=== PATIENT | male | born 1935 | race Caucasian/White ===

== ENCOUNTER 2018-01-23 08:23 | Emergency (ER) | payer OTHER ==
[~2018-01-23] VITALS: Ht 175.3 cm; Wt 87.6 kg
[~2018-01-23 08:23] MED LIST: FLEXERIL10 MG PO; LORTAB 5-325 M1 EACH PO
[2018-01-23 09:19] LABS: HEMATOCRIT 41.9 % (38.0-50.0); HEMOGLOBIN 14.4 G/DL (12.5-16.6); MCH 29.9 PG (29.0-34.0); MCHC 34.4 G/DL (30.0-36.0); MCV 86.9 FL (86-99); PLATELET COUNT 222 K/uL (156-360); RBC DIS.WIDTH-CV 12.8 % (11.8-14.6); RBC DIS.WIDTH-SD 40.6 % (39-53); RED BLOOD COUNT 4.82 M/uL (4.00-5.50); WHITE BLOOD COUNT 7.1 K/uL (4.1-10.2)
[2018-01-23 09:31] LABS: CHLORIDE 103 mEq/L (99-109); POTASSIUM 4.6 mEq/L (3.7-5.4); SODIUM 136 mEq/L (136-147)
[2018-01-23 09:33] LABS: GLUCOSE 256 mg/dL (70-99)
[2018-01-23 09:37] LABS: CREATININE 0.9 mg/dL (0.6-1.3); GFR ESTIMATE (CALCULATED) > 59 mL/min/ (58.99-99999); UREA NITROGEN (BUN) 13 mg/dL (9-23)
[2018-01-23 09:40] LABS: TROP-I INTERPRETATION NEGATIVE; TROPONIN-I < 0.01 ng/mL (0.0-0.30)
[2018-01-23 12:15] LABS: APPEARANCE CLEAR ((CLEAR)); BILIRUBIN NEGATIVE; BLOOD NEGATIVE; COLOR COLORLESS ((YELLOW)); GLUCOSE (STRIP) 50; KETONES NEGATIVE; LEUKOCYTES NEGATIVE; NITRITE NEGATIVE; PROTEIN (STRIP) NEGATIVE; SPECIFIC GRAVITY 1.005 (1.000-1.030); UCUL ADDED? NO; UROBILINOGEN 0.2 MG/DL (0.2-1.0)
[2018-01-23 12:17] LABS: TROP-I INTERPRETATION NEGATIVE; TROPONIN-I < 0.01 ng/mL (0.0-0.30)
[2018-01-23] MEDS ORDERED: LISINOPRIL30 MG PO (12:51)
[2018-01-23] MEDS ORDERED: GLIPIZIDE XL10 MG PO (12:52)
[2018-01-23 12:56] VITALS: BP 172/92
== END 2018-01-23 12:56 | disposition home or self-care (01) ==
LOC: EME 08:23
PROVIDERS: Emergency Medicine
DX: R07.89 Other chest pain (principal); E11.9 Type 2 diabetes mellitus without complications; I10 Essential (primary) hypertension; E78.5 Hyperlipidemia, unspecified
CPT/HCPCS: 71046; 80048; 81003; 84484; 85027; 93005; 99281; 99285

== ENCOUNTER 2018-01-26 07:50 | Observation (INO) | payer OTHER ==
[~2018-01-26] VITALS: Ht 175.3 cm; Wt 86.6 kg
[~2018-01-26 07:50] MED LIST changes: +GLIPIZIDE XL10 MG PO; +LISINOPRIL30 MG PO
[2018-01-26 08:37] LABS: INTER. NORMALIZED RATIO 1.1
[2018-01-26 08:40] LABS: PTT 24.7 SEC (25-37)
[2018-01-26 08:45] LABS: BASOPHIL (%) 0.3 % (0-1); EOSINOPHIL (%) 0.3 % (0-5); HEMATOCRIT 44.7 % (38.0-50.0); HEMOGLOBIN 15.8 G/DL (12.5-16.6); IMMATURE GRANULOCYTE (%) 0.4 % (0.0-0.7); LYMPHOCYTE (%) 10.1 % (15-42); MCH 29.8 PG (29.0-34.0); MCHC 35.3 G/DL (30.0-36.0); MCV 84.2 FL (86-99); MONOCYTE (%) 5.3 % (3-12); MONOCYTE COUNT 0.5 K/uL (0-0.8); NEUTROPHIL (%) 83.6 % (45-76); NEUTROPHIL COUNT 8.2 K/uL (1.8-6.4); PLATELET COUNT 233 K/uL (156-360); RBC DIS.WIDTH-CV 12.3 % (11.8-14.6); RBC DIS.WIDTH-SD 37.4 % (39-53); RED BLOOD COUNT 5.31 M/uL (4.00-5.50); WHITE BLOOD COUNT 9.8 K/uL (4.1-10.2)
[2018-01-26 08:47] LABS: CHLORIDE 95 mEq/L (99-109); POTASSIUM 4.2 mEq/L (3.7-5.4)
[2018-01-26 08:49] LABS: GLUCOSE 309 mg/dL (70-99)
[2018-01-26 08:51] LABS: SODIUM 129 mEq/L (136-147)
[2018-01-26 08:53] LABS: GFR ESTIMATE (CALCULATED) > 59 mL/min/ (58.99-99999); UREA NITROGEN (BUN) 18 mg/dL (9-23)
[2018-01-26 08:56] LABS: TROP-I INTERPRETATION NEGATIVE; TROPONIN-I < 0.01 ng/mL (0.0-0.30)
[2018-01-26] MEDS ORDERED: LIPITOR40 MG PO (10:21)
[2018-01-26] MEDS ORDERED: OMEPRAZOLE40 M1 PO (10:22)
[2018-01-26] MEDS ORDERED: LO-DOSE ASPIRIN81 M1 PO (10:22)
[2018-01-26] MEDS ORDERED: CINNAMON500 MG PO (10:23)
[2018-01-26] MEDS ORDERED: ONE DAILY MULT1 EACH PO (10:23)
[2018-01-26] MEDS ORDERED: FLECTOR 1.3%1 PATC1 TD (10:24)
[2018-01-26 12:01] VITALS: BP 184/108
[2018-01-26 12:25] LABS: ALBUMIN 4.2 g/dL (3.2-4.8)
[2018-01-26 12:28] LABS: TOTAL PROTEIN 7.4 g/dL (6.4-8.3)
[2018-01-26 12:30] LABS: TOTAL BILIRUBIN 1.2 mg/dL (0.0-1.0)
[2018-01-26 12:31] LABS: ALKALINE PHOSPHATASE 128 IU/L (3-129)
[2018-01-26 12:33] LABS: AST (GOT) 21 IU/L (2-34); DIRECT BILIRUBIN 0.4 mg/dL (0.0-0.3)
[2018-01-26 12:34] LABS: ALT (GPT) 25 IU/L (3-49)
[2018-01-26 12:55] VITALS: BP 113/65
[2018-01-26 13:11] LABS: HDL CHOLESTEROL 39 MG/DL (Desirable>=40); LDL CHOLESTEROL 90 mg/dL (Desirable<100); NON-HDL CHOLESTEROL 103 mg/dL (Desirable<160); TOTAL CHOLESTEROL 142 mg/dL (Desirable<200); TRIGLYCERIDES 67 MG/DL (Normal: <150)
[2018-01-26 14:31] VITALS: BP 168/89
[2018-01-26 16:25] LABS: TROP-I INTERPRETATION NEGATIVE; TROPONIN-I < 0.01 ng/mL (0.0-0.30)
[2018-01-26 19:00] VITALS: BP 170/90
[2018-01-26 19:57] LABS: CHLORIDE 96 MEQ/L (99-109); POTASSIUM 3.8 MEQ/L (3.7-5.4); SODIUM 129 MEQ/L (136-147)
[2018-01-26 20:02] LABS: CREATININE 0.7 MG/DL (0.6-1.3); GFR ESTIMATE (CALCULATED) > 59 mL/min/ (58.99-99999); GLUCOSE 258 mg/dL (70-99); LIPASE 21 U/L (1.0-51.0); UREA NITROGEN (BUN) 16 mg/dL (9-23)
[2018-01-26 22:39] LABS: TROP-I INTERPRETATION NEGATIVE; TROPONIN-I < 0.01 ng/mL (0.0-0.30)
[2018-01-26 23:25] VITALS: BP 194/97
[2018-01-27 04:00] VITALS: BP 173/88
[2018-01-27 07:00] LABS: CHLORIDE 98 MEQ/L (99-109); SODIUM 131 MEQ/L (136-147)
[2018-01-27 07:05] LABS: CREATININE 0.7 MG/DL (0.6-1.3); GFR ESTIMATE (CALCULATED) > 59 mL/min/ (58.99-99999); GLUCOSE 262 mg/dL (70-99); UREA NITROGEN (BUN) 17 mg/dL (9-23)
[2018-01-27 07:22] VITALS: BP 174/88
[2018-01-27] MEDS ORDERED: AMLODIPINE BESYL5 MG PO (10:25)
[2018-01-27] MEDS ORDERED: NITROSTAT0.4 MG SL (10:25)
[2018-01-27 12:26] LABS: HEMOGLOBIN A1c (GLYCOHEMOGLOB) 7.8 % (Below 5.7)
== END 2018-01-27 10:56 | disposition home or self-care (01) ==
LOC: EME 07:50 → EDOF 10:57 → ENRESERV 11:07 → 4SOUTH 11:58
PROVIDERS: Emergency Medicine; Nurse Practitioner Adult Health
DX: R07.9 Chest pain, unspecified (principal); I10 Essential (primary) hypertension; E87.1 Hypo-osmolality and hyponatremia; E11.65 Type 2 diabetes mellitus with hyperglycemia; E78.5 Hyperlipidemia, unspecified; Z79.82 Long term (current) use of aspirin; Z79.84 Long term (current) use of oral hypoglycemic drugs
CPT/HCPCS: 71045; 80048; 80048 91; 80061; 80076; 83036; 83690; 83880; 84484; 85025; 85379; 85610; 85730; 93005; 99281; 99285; G0378; J0360; J1650; J7030

== ENCOUNTER 2018-02-02 17:35 | Inpatient (IN) | payer OTHER ==
[~2018-02-02] VITALS: Ht 175.3 cm; Wt 79.1 kg
[~2018-02-02 17:35] MED LIST changes: +AMLODIPINE BESYL5 MG PO; +CINNAMON500 MG PO; +FLECTOR 1.3%1 PATC1 TD; +LIPITOR40 MG PO; +LO-DOSE ASPIRIN81 M1 PO; +NITROSTAT0.4 MG SL; +OMEPRAZOLE40 M1 PO; +ONE DAILY MULT1 EACH PO
[2018-02-02 19:41] VITALS: BP 142/76
[2018-02-02 23:11] LABS: BASOPHIL (%) 0.3 % (0-1); EOSINOPHIL (%) 1.2 % (0-5); EOSINOPHIL COUNT 0.2 K/uL (0-0.3); HEMOGLOBIN 15.5 G/DL (12.5-16.6); IMMATURE GRANULOCYTE (%) 0.4 % (0.0-0.7); LYMPHOCYTE (%) 9.5 % (15-42); LYMPHOCYTE COUNT 1.5 K/uL (1.0-2.8); MCV 83.2 FL (86-99); MONOCYTE (%) 8.3 % (3-12); MONOCYTE COUNT 1.3 K/uL (0-0.8); NEUTROPHIL (%) 80.3 % (45-76); NEUTROPHIL COUNT 12.3 K/uL (1.8-6.4); PLATELET COUNT 258 K/uL (156-360); RBC DIS.WIDTH-CV 12.5 % (11.8-14.6); RBC DIS.WIDTH-SD 38.2 % (39-53); RED BLOOD COUNT 5.17 M/uL (4.00-5.50); WHITE BLOOD COUNT 15.3 K/uL (4.1-10.2)
[2018-02-02 23:20] LABS: ALBUMIN 3.4 g/dL (3.2-4.8); CHLORIDE 95 mEq/L (99-109); POTASSIUM 4.4 mEq/L (3.7-5.4); SODIUM 126 mEq/L (136-147)
[2018-02-02 23:21] LABS: MAGNESIUM 1.7 mg/dL (1.3-2.7)
[2018-02-02 23:22] LABS: GLUCOSE 202 mg/dL (70-99)
[2018-02-02 23:24] LABS: TOTAL BILIRUBIN 1.4 mg/dL (0.0-1.0)
[2018-02-02 23:26] LABS: ALKALINE PHOSPHATASE 113 IU/L (3-129); CREATININE 0.8 mg/dL (0.6-1.3); GFR ESTIMATE (CALCULATED) > 59 mL/min/ (58.99-99999)
[2018-02-02 23:27] LABS: UREA NITROGEN (BUN) 23 mg/dL (9-23)
[2018-02-02 23:28] LABS: AST (GOT) 17 IU/L (2-34)
[2018-02-02 23:29] LABS: ALT (GPT) 17 IU/L (3-49)
[2018-02-02 23:49] VITALS: BP 168/81
[2018-02-03] VITALS (9 sets, daily range): BP systolic 48–179; BP diastolic 39–100
[2018-02-03 10:00] LABS: HEMOGLOBIN A1c (GLYCOHEMOGLOB) 8.1 % (Below 5.7)
[2018-02-03 11:50] LABS: BASOPHIL (%) 0.3 % (0-1); EOSINOPHIL (%) 1.1 % (0-5); EOSINOPHIL COUNT 0.1 K/uL (0-0.3); HEMATOCRIT 43.2 % (38.0-50.0); HEMOGLOBIN 15.5 G/DL (12.5-16.6); IMMATURE GRANULOCYTE (%) 0.4 % (0.0-0.7); LYMPHOCYTE (%) 10.6 % (15-42); LYMPHOCYTE COUNT 1.2 K/uL (1.0-2.8); MCH 29.9 PG (29.0-34.0); MCHC 35.9 G/DL (30.0-36.0); MCV 83.2 FL (86-99); NEUTROPHIL (%) 78.6 % (45-76); NEUTROPHIL COUNT 9.1 K/uL (1.8-6.4); PLATELET COUNT 251 K/uL (156-360); RBC DIS.WIDTH-CV 12.4 % (11.8-14.6); RBC DIS.WIDTH-SD 37.7 % (39-53); RED BLOOD COUNT 5.19 M/uL (4.00-5.50); WHITE BLOOD COUNT 11.6 K/uL (4.1-10.2)
[2018-02-03 12:09] LABS: CHLORIDE 93 MEQ/L (99-109); CREATININE 0.6 MG/DL (0.6-1.3); GFR ESTIMATE (CALCULATED) > 59 mL/min/ (58.99-99999); GLUCOSE 264 mg/dL (70-99); MAGNESIUM 1.7 mg/dl (1.3-2.7); POTASSIUM 4.7 MEQ/L (3.7-5.4); SODIUM 126 MEQ/L (136-147); UREA NITROGEN (BUN) 16 mg/dL (9-23)
[2018-02-03 13:18] LABS: BASE EXCESS -0.3 mEq/L (-3 to +3); BICARBONATE 25.9 mEq/L (22-26); CARBOXY HGB 1.5 % (0-5); COMMENTS - BLOOD GASES A+C+; DEVICE NC; METHEMOGLOBIN 0.5 % (0-1.5); O2 FLOW 2 L/MIN; PCO2 47 mm Hg (35-45); PO2 63 mm Hg (80-100); SITE RR; TOTAL RESP RATE 28 resp/min; pH 7.35 (7.35-7.45)
[2018-02-03 14:53] LABS: CHLORIDE 94 MEQ/L (99-109); CREATININE 0.7 MG/DL (0.6-1.3); GFR ESTIMATE (CALCULATED) > 59 mL/min/ (58.99-99999); GLUCOSE 274 mg/dL (70-99); POTASSIUM 4.5 MEQ/L (3.7-5.4); SODIUM 126 MEQ/L (136-147); UREA NITROGEN (BUN) 14 mg/dL (9-23)
[2018-02-03 17:55] LABS: APPEARANCE CLEAR/COLORLESS; CSF TUBE NUMBER TUBE #3; RED CELL COUNT 0 /MM^3 (0-1)
[2018-02-03 17:56] LABS: CSF EOSINOPHILS 0 % (0-25); MONONUCLEAR WBC'S 100 % (50-90); POLYNUCLEAR WBC'S 0 % (0-3); WHITE CELL COUNT 2 /MM^3 (0-5)
[2018-02-03 18:17] LABS: CSF LDH 22 IU/L; CSF PROTEIN 312 mg/dL (15-45); GLUCOSE, CSF 140 mg/dL (40-80)
[2018-02-03 23:08] LABS: COMMENTS - BLOOD GASES C+; DEVICE VENT; FI02 100 %; MECHANICAL RATE 20 resp/min; MODE AC; PEEP 8 CM/H20; SITE RR; TIDAL VOLUME 450 ML; TOTAL RESP RATE 20 resp/min
[2018-02-03 23:09] LABS: BASE EXCESS -5.8 mEq/L (-3 to +3); BICARBONATE 19.5 mEq/L (22-26); CARBOXY HGB 0.4 % (0-5); METHEMOGLOBIN 0.8 % (0-1.5); PCO2 37 mm Hg (35-45); PO2 278 mm Hg (80-100); pH 7.33 (7.35-7.45)
[2018-02-03 23:29] LABS: APPEARANCE CLEAR ((CLEAR)); BILIRUBIN NEGATIVE; BLOOD NEGATIVE; COLOR YELLOW ((YELLOW)); GLUCOSE (STRIP) >=500; KETONES 5; LEUKOCYTES NEGATIVE; NITRITE NEGATIVE; PROTEIN (STRIP) NEGATIVE; SPECIFIC GRAVITY 1.017 (1.000-1.030); UCUL ADDED? NO; UROBILINOGEN 0.2 MG/DL (0.2-1.0)
[2018-02-04] VITALS (25 sets, daily range): BP systolic 86–155; BP diastolic 52–87
[2018-02-04 00:43] LABS: HEMATOCRIT 42.9 % (38.0-50.0); HEMOGLOBIN 14.9 G/DL (12.5-16.6); MCH 30.3 PG (29.0-34.0); MCHC 34.7 G/DL (30.0-36.0); PLATELET COUNT 267 K/uL (156-360); RBC DIS.WIDTH-CV 12.7 % (11.8-14.6); RBC DIS.WIDTH-SD 40.3 % (39-53); RED BLOOD COUNT 4.92 M/uL (4.00-5.50)
[2018-02-04 00:45] LABS: MCV 87.2 FL (86-99)
[2018-02-04 00:46] LABS: BASOPHIL (%) 0.1 % (0-1); EOSINOPHIL (%) 0.1 % (0-5); IMMATURE GRANULOCYTE (%) 0.5 % (0.0-0.7); LYMPHOCYTE (%) 3.9 % (15-42); LYMPHOCYTE COUNT 0.8 K/uL (1.0-2.8); MONOCYTE (%) 8.3 % (3-12); MONOCYTE COUNT 1.7 K/uL (0-0.8); NEUTROPHIL (%) 87.1 % (45-76); NEUTROPHIL COUNT 17.4 K/uL (1.8-6.4)
[2018-02-04 00:47] LABS: INTER. NORMALIZED RATIO 1.1
[2018-02-04 00:49] LABS: PTT 24.2 SEC (25-37)
[2018-02-04 00:55] LABS: CHLORIDE 98 mEq/L (99-109); SODIUM 128 mEq/L (136-147)
[2018-02-04 00:56] LABS: MAGNESIUM 1.8 mg/dL (1.3-2.7); POTASSIUM 6.1 mEq/L (3.7-5.4)
[2018-02-04 00:57] LABS: GLUCOSE 230 mg/dL (70-99)
[2018-02-04 01:01] LABS: GFR ESTIMATE (CALCULATED) > 59 mL/min/ (58.99-99999)
[2018-02-04 01:02] LABS: UREA NITROGEN (BUN) 19 mg/dL (9-23)
[2018-02-04 01:03] LABS: CREATINE KINASE 61 IU/L (1-294)
[2018-02-04 01:34] LABS: TRIGLYCERIDES 105 MG/DL (Normal: <150)
[2018-02-04 04:34] LABS: BASOPHIL (%) 0.1 % (0-1); EOSINOPHIL (%) 0.1 % (0-5); HEMATOCRIT 36.4 % (38.0-50.0); IMMATURE GRANULOCYTE (%) 0.8 % (0.0-0.7); LYMPHOCYTE (%) 3.4 % (15-42); LYMPHOCYTE COUNT 0.5 K/uL (1.0-2.8); MCHC 35.2 G/DL (30.0-36.0); MCV 85.4 FL (86-99); MONOCYTE COUNT 0.9 K/uL (0-0.8); NEUTROPHIL (%) 89.6 % (45-76); NEUTROPHIL COUNT 12.8 K/uL (1.8-6.4); PLATELET COUNT 198 K/uL (156-360); RBC DIS.WIDTH-CV 12.8 % (11.8-14.6); RBC DIS.WIDTH-SD 39.5 % (39-53); RED BLOOD COUNT 4.26 M/uL (4.00-5.50); WHITE BLOOD COUNT 14.2 K/uL (4.1-10.2)
[2018-02-04 04:36] LABS: HEMOGLOBIN 12.8 G/DL (12.5-16.6)
[2018-02-04 04:52] LABS: CHLORIDE 104 mEq/L (99-109); SODIUM 129 mEq/L (136-147)
[2018-02-04 04:53] LABS: CHLORIDE 104 mEq/L (99-109); SODIUM 130 mEq/L (136-147)
[2018-02-04 04:54] LABS: GLUCOSE 259 mg/dL (70-99); POTASSIUM 4.5 mEq/L (3.7-5.4)
[2018-02-04 04:55] LABS: GLUCOSE 260 mg/dL (70-99)
[2018-02-04 04:58] LABS: CREATININE 0.8 mg/dL (0.6-1.3); GFR ESTIMATE (CALCULATED) > 59 mL/min/ (58.99-99999)
[2018-02-04 04:59] LABS: CREATININE 0.7 mg/dL (0.6-1.3); GFR ESTIMATE (CALCULATED) > 59 mL/min/ (58.99-99999); UREA NITROGEN (BUN) 20 mg/dL (9-23)
[2018-02-04 05:00] LABS: CREATINE KINASE 43 IU/L (1-294); UREA NITROGEN (BUN) 17 mg/dL (9-23)
[2018-02-04 05:55] LABS: COMMENTS - BLOOD GASES C+; DEVICE VENT; FI02 50 %; MECHANICAL RATE 20 resp/min; MODE AC; PEEP 8 CM/H20; SITE RR; TIDAL VOLUME 450 ML; TOTAL RESP RATE 20 resp/min
[2018-02-04 05:56] LABS: BASE EXCESS -4.7 mEq/L (-3 to +3); BICARBONATE 19.5 mEq/L (22-26); CARBOXY HGB 0.4 % (0-5); METHEMOGLOBIN 0.8 % (0-1.5); PCO2 33 mm Hg (35-45); PO2 124 mm Hg (80-100); pH 7.38 (7.35-7.45)
[2018-02-05] VITALS (26 sets, daily range): BP systolic 110–175; BP diastolic 62–95
[2018-02-05 08:36] LABS: BASOPHIL (%) 0.3 % (0-1); EOSINOPHIL (%) 2.9 % (0-5); EOSINOPHIL COUNT 0.2 K/uL (0-0.3); HEMATOCRIT 31.7 % (38.0-50.0); HEMOGLOBIN 10.9 G/DL (12.5-16.6); IMMATURE GRANULOCYTE (%) 0.7 % (0.0-0.7); LYMPHOCYTE (%) 14.5 % (15-42); LYMPHOCYTE COUNT 0.9 K/uL (1.0-2.8); MCHC 34.4 G/DL (30.0-36.0); MCV 87.3 FL (86-99); MONOCYTE (%) 11.3 % (3-12); MONOCYTE COUNT 0.7 K/uL (0-0.8); NEUTROPHIL (%) 70.3 % (45-76); NEUTROPHIL COUNT 4.2 K/uL (1.8-6.4); RBC DIS.WIDTH-CV 13.5 % (11.8-14.6); RBC DIS.WIDTH-SD 43.7 % (39-53); RED BLOOD COUNT 3.63 M/uL (4.00-5.50)
[2018-02-05 08:49] LABS: CREATININE 0.7 MG/DL (0.6-1.3); GFR ESTIMATE (CALCULATED) > 59 mL/min/ (58.99-99999); GLUCOSE 166 mg/dL (70-99); MAGNESIUM 1.7 mg/dl (1.3-2.7); PHOSPHORUS 2.2 mg/dL (2.5-4.9); SODIUM 133 MEQ/L (136-147); UREA NITROGEN (BUN) 16 mg/dL (9-23)
[2018-02-05 08:52] LABS: CHLORIDE 107 MEQ/L (99-109)
[2018-02-05 09:27] LABS: HEMATOLOGY COMMENT 1 SN; PLAT.SUFFICIENCY DECREASED; PLATELET COUNT 135 K/uL (156-360)
[2018-02-06] VITALS (23 sets, daily range): BP systolic 131–187; BP diastolic 73–103
[2018-02-06 06:14] LABS: CARBOXY HGB 0.6 % (0-5); METHEMOGLOBIN 0.7 % (0-1.5); PCO2 33 mm Hg (35-45); PO2 108 mm Hg (80-100); pH 7.47 (7.35-7.45)
[2018-02-06 06:15] LABS: BASE EXCESS 0.8 mEq/L (-3 to +3); COMMENTS - BLOOD GASES C+; DEVICE VENT; FI02 30 %; MECHANICAL RATE 20 resp/min; MODE ACVC; PEEP 5 CM/H20; SITE LR; TIDAL VOLUME 450 ML; TOTAL RESP RATE 20 resp/min
[2018-02-06 06:27] LABS: BASOPHIL (%) 0.4 % (0-1); EOSINOPHIL (%) 3.6 % (0-5); EOSINOPHIL COUNT 0.2 K/uL (0-0.3); HEMATOCRIT 34.4 % (38.0-50.0); HEMOGLOBIN 11.8 G/DL (12.5-16.6); IMMATURE GRANULOCYTE (%) 0.6 % (0.0-0.7); LYMPHOCYTE (%) 14.8 % (15-42); LYMPHOCYTE COUNT 0.8 K/uL (1.0-2.8); MCH 29.9 PG (29.0-34.0); MCHC 34.3 G/DL (30.0-36.0); MCV 87.3 FL (86-99); MONOCYTE (%) 12.7 % (3-12); MONOCYTE COUNT 0.7 K/uL (0-0.8); NEUTROPHIL (%) 67.9 % (45-76); NEUTROPHIL COUNT 3.6 K/uL (1.8-6.4); PLATELET COUNT 123 K/uL (156-360); RBC DIS.WIDTH-CV 13.6 % (11.8-14.6); RBC DIS.WIDTH-SD 43.9 % (39-53); RED BLOOD COUNT 3.94 M/uL (4.00-5.50); WHITE BLOOD COUNT 5.4 K/uL (4.1-10.2)
[2018-02-06 06:39] LABS: CHLORIDE 104 mEq/L (99-109); POTASSIUM 3.8 mEq/L (3.7-5.4); SODIUM 134 mEq/L (136-147)
[2018-02-06 06:40] LABS: MAGNESIUM 1.9 mg/dL (1.3-2.7)
[2018-02-06 06:41] LABS: GLUCOSE 212 mg/dL (70-99)
[2018-02-06 06:45] LABS: CREATININE 0.8 mg/dL (0.6-1.3); GFR ESTIMATE (CALCULATED) > 59 mL/min/ (58.99-99999)
[2018-02-06 06:46] LABS: UREA NITROGEN (BUN) 12 mg/dL (9-23)
[2018-02-06 06:49] LABS: PHOSPHORUS 2.2 mg/dL (2.5-4.9)
[2018-02-07] VITALS (14 sets, daily range): BP systolic 134–175; BP diastolic 68–95
[2018-02-07 05:18] LABS: BASOPHIL (%) 0.3 % (0-1); EOSINOPHIL (%) 1.7 % (0-5); EOSINOPHIL COUNT 0.1 K/uL (0-0.3); HEMATOCRIT 34.5 % (38.0-50.0); HEMOGLOBIN 11.7 G/DL (12.5-16.6); IMMATURE GRANULOCYTE (%) 0.7 % (0.0-0.7); LYMPHOCYTE COUNT 0.7 K/uL (1.0-2.8); MCH 29.1 PG (29.0-34.0); MCHC 33.9 G/DL (30.0-36.0); MCV 85.8 FL (86-99); MONOCYTE (%) 11.7 % (3-12); MONOCYTE COUNT 0.7 K/uL (0-0.8); NEUTROPHIL (%) 73.6 % (45-76); NEUTROPHIL COUNT 4.4 K/uL (1.8-6.4); PLATELET COUNT 136 K/uL (156-360); RBC DIS.WIDTH-CV 13.4 % (11.8-14.6); RBC DIS.WIDTH-SD 42.1 % (39-53); RED BLOOD COUNT 4.02 M/uL (4.00-5.50); WHITE BLOOD COUNT 5.9 K/uL (4.1-10.2)
[2018-02-07 06:04] LABS: CHLORIDE 100 MEQ/L (99-109); CREATININE 0.7 MG/DL (0.6-1.3); GFR ESTIMATE (CALCULATED) > 59 mL/min/ (58.99-99999); GLUCOSE 151 mg/dL (70-99); MAGNESIUM 1.9 mg/dl (1.3-2.7); POTASSIUM 3.9 MEQ/L (3.7-5.4); SODIUM 134 MEQ/L (136-147); UREA NITROGEN (BUN) 9 mg/dL (9-23)
[2018-02-07 06:09] LABS: PHOSPHORUS 3.1 mg/dL (2.5-4.9)
[2018-02-08 00:06] VITALS: BP 204/95
[2018-02-08 03:48] VITALS: BP 185/93
[2018-02-08 06:39] LABS: BASOPHIL (%) 0.5 % (0-1); BASOPHIL COUNT 0.1 K/uL (0-0.1); EOSINOPHIL (%) 1.9 % (0-5); EOSINOPHIL COUNT 0.2 K/uL (0-0.3); HEMATOCRIT 39.2 % (38.0-50.0); HEMOGLOBIN 13.8 G/DL (12.5-16.6); IMMATURE GRANULOCYTE (%) 0.5 % (0.0-0.7); LYMPHOCYTE (%) 12.6 % (15-42); LYMPHOCYTE COUNT 1.2 K/uL (1.0-2.8); MCH 29.8 PG (29.0-34.0); MCHC 35.2 G/DL (30.0-36.0); MCV 84.7 FL (86-99); MONOCYTE (%) 12.4 % (3-12); MONOCYTE COUNT 1.2 K/uL (0-0.8); NEUTROPHIL (%) 72.1 % (45-76); NEUTROPHIL COUNT 6.7 K/uL (1.8-6.4); PLATELET COUNT 176 K/uL (156-360); RBC DIS.WIDTH-SD 40.3 % (39-53); RED BLOOD COUNT 4.63 M/uL (4.00-5.50); WHITE BLOOD COUNT 9.3 K/uL (4.1-10.2)
[2018-02-08 06:40] LABS: CHLORIDE 97 MEQ/L (99-109); CREATININE 0.7 MG/DL (0.6-1.3); GFR ESTIMATE (CALCULATED) > 59 mL/min/ (58.99-99999); GLUCOSE 192 mg/dL (70-99); MAGNESIUM 1.8 mg/dl (1.3-2.7); PHOSPHORUS 2.9 mg/dL (2.5-4.9); POTASSIUM 3.9 MEQ/L (3.7-5.4); SODIUM 131 MEQ/L (136-147); UREA NITROGEN (BUN) 10 mg/dL (9-23)
[2018-02-08 08:06] VITALS: BP 154/105
[2018-02-08 11:11] LABS: Albumin, Serum 3.6 g/dL
[2018-02-08 17:11] VITALS: BP 173/105
[2018-02-08 20:07] VITALS: BP 160/80
[2018-02-08 20:37] LABS: IgG, Serum 830 mg/dL (694-1618)
[2018-02-08 20:51] LABS: IgG, CSF 25.6 mg/dL (0.8-7.7)
[2018-02-08 23:32] VITALS: BP 165/96
[2018-02-09 03:11] VITALS: BP 183/97
[2018-02-09 07:17] VITALS: BP 178/97
[2018-02-09 16:15] VITALS: BP 142/92
[2018-02-10] VITALS (14 sets, daily range): BP systolic 70–169; BP diastolic 40–93
[2018-02-10 12:43] LABS: CARBOXY HGB 0.5 % (0-5); COMMENTS - BLOOD GASES +C; DEVICE NC; METHEMOGLOBIN 0.8 % (0-1.5); O2 FLOW 5 L/MIN; O2 SATURATION (CALCULATED) 93.1 % (95-99); PCO2 47 mm Hg (35-45); PO2 62 mm Hg (80-100); SITE RR +A; TOTAL RESP RATE 40 resp/min; pH 7.33 (7.35-7.45)
[2018-02-10 12:44] LABS: BASE EXCESS -1.6 mEq/L (-3 to +3); BICARBONATE 24.8 mEq/L (22-26)
[2018-02-10 15:17] LABS: Heparin Induced Plt Ab Negative (Negative)
[2018-02-10 15:34] LABS: HEMATOCRIT 38.8 % (38.0-50.0); HEMOGLOBIN 13.4 G/DL (12.5-16.6); MCH 29.6 PG (29.0-34.0); MCHC 34.5 G/DL (30.0-36.0); MCV 85.7 FL (86-99); PLATELET COUNT 173 K/uL (156-360); RBC DIS.WIDTH-CV 12.8 % (11.8-14.6); RBC DIS.WIDTH-SD 40.4 % (39-53); RED BLOOD COUNT 4.53 M/uL (4.00-5.50); WHITE BLOOD COUNT 11.1 K/uL (4.1-10.2)
[2018-02-10 15:41] LABS: CHLORIDE 100 mEq/L (99-109); POTASSIUM 4.4 mEq/L (3.7-5.4); SODIUM 130 mEq/L (136-147)
[2018-02-10 15:43] LABS: GLUCOSE 183 mg/dL (70-99)
[2018-02-10 15:47] LABS: CREATININE 0.9 mg/dL (0.6-1.3); GFR ESTIMATE (CALCULATED) > 59 mL/min/ (58.99-99999)
[2018-02-10 16:11] LABS: DEVICE VENT; FI02 100 %; MECHANICAL RATE 16 resp/min; MODE ACVC; PCO2 43 mm Hg (35-45); SITE RR; TOTAL RESP RATE 23 resp/min; pH 7.35 (7.35-7.45)
[2018-02-10 16:12] LABS: BASE EXCESS -2 mEq/L (-3 to +3); BICARBONATE 23.7 mEq/L (22-26); CARBOXY HGB 0.2 % (0-5); O2 SATURATION (CALCULATED) 96.8 % (95-99); PO2 202 mm Hg (80-100)
[2018-02-10 16:18] LABS: UREA NITROGEN (BUN) 21 mg/dL (9-23)
[2018-02-10 17:09] LABS: UFH SRA Result Negative (Negative)
[2018-02-11] VITALS (21 sets, daily range): BP systolic 92–136; BP diastolic 53–77
[2018-02-12] VITALS (20 sets, daily range): BP systolic 105–162; BP diastolic 61–90
[2018-02-12 05:40] LABS: BASOPHIL (%) 0.4 % (0-1); EOSINOPHIL (%) 3.1 % (0-5); EOSINOPHIL COUNT 0.2 K/uL (0-0.3); HEMATOCRIT 33.1 % (38.0-50.0); IMMATURE GRANULOCYTE (%) 0.3 % (0.0-0.7); LYMPHOCYTE (%) 16.7 % (15-42); LYMPHOCYTE COUNT 1.1 K/uL (1.0-2.8); MCH 29.1 PG (29.0-34.0); MCHC 33.5 G/DL (30.0-36.0); MCV 86.9 FL (86-99); MONOCYTE (%) 7.1 % (3-12); MONOCYTE COUNT 0.5 K/uL (0-0.8); NEUTROPHIL (%) 72.4 % (45-76); NEUTROPHIL COUNT 4.9 K/uL (1.8-6.4); PLATELET COUNT 164 K/uL (156-360); RBC DIS.WIDTH-CV 13.2 % (11.8-14.6); RBC DIS.WIDTH-SD 41.7 % (39-53); RED BLOOD COUNT 3.81 M/uL (4.00-5.50); WHITE BLOOD COUNT 6.8 K/uL (4.1-10.2)
[2018-02-12 05:43] LABS: HEMOGLOBIN 11.1 G/DL (12.5-16.6)
[2018-02-12 06:04] LABS: CHLORIDE 105 MEQ/L (99-109); CREATININE 0.7 MG/DL (0.6-1.3); GFR ESTIMATE (CALCULATED) > 59 mL/min/ (58.99-99999); MAGNESIUM 1.7 mg/dl (1.3-2.7); PHOSPHORUS 2.3 mg/dL (2.5-4.9); POTASSIUM 4.2 MEQ/L (3.7-5.4); SODIUM 133 MEQ/L (136-147); UREA NITROGEN (BUN) 17 mg/dL (9-23)
[2018-02-12 06:09] LABS: GLUCOSE 104 mg/dL (70-99)
[2018-02-12 10:40] LABS: IgG Index, CSF ND index
[2018-02-13] VITALS (13 sets, daily range): BP systolic 118–159; BP diastolic 61–80
[2018-02-13 05:14] LABS: COMMENTS - BLOOD GASES C+A+; DEVICE NC; O2 FLOW 2 L/MIN; PCO2 35 mm Hg (35-45); PO2 87 mm Hg (80-100); SITE RR; pH 7.42 (7.35-7.45)
[2018-02-13 05:15] LABS: BASE EXCESS -1.3 mEq/L (-3 to +3); BICARBONATE 22.7 mEq/L (22-26); CARBOXY HGB 0.6 % (0-5); METHEMOGLOBIN 0.6 % (0-1.5)
[2018-02-13 05:26] LABS: BASOPHIL (%) 0 % (0-1); EOSINOPHIL (%) 0 % (0-5); HEMATOCRIT 35.1 % (38.0-50.0); HEMOGLOBIN 12.2 G/DL (12.5-16.6); IMMATURE GRANULOCYTE (%) 0.2 % (0.0-0.7); LYMPHOCYTE (%) 5.7 % (15-42); LYMPHOCYTE COUNT 0.3 K/uL (1.0-2.8); MCH 29.4 PG (29.0-34.0); MCHC 34.8 G/DL (30.0-36.0); MCV 84.6 FL (86-99); MONOCYTE (%) 3.5 % (3-12); MONOCYTE COUNT 0.2 K/uL (0-0.8); NEUTROPHIL (%) 90.6 % (45-76); PLATELET COUNT 194 K/uL (156-360); RBC DIS.WIDTH-SD 39.6 % (39-53); RED BLOOD COUNT 4.15 M/uL (4.00-5.50); WHITE BLOOD COUNT 5.5 K/uL (4.1-10.2)
[2018-02-13 06:01] LABS: CHLORIDE 104 MEQ/L (99-109); CREATININE 0.7 MG/DL (0.6-1.3); GFR ESTIMATE (CALCULATED) > 59 mL/min/ (58.99-99999); PHOSPHORUS 2.4 mg/dL (2.5-4.9); POTASSIUM 4.4 MEQ/L (3.7-5.4); SODIUM 135 MEQ/L (136-147); UREA NITROGEN (BUN) 20 mg/dL (9-23)
[2018-02-13 06:04] LABS: GLUCOSE 200 mg/dL (70-99)
[2018-02-14 00:17] VITALS: BP 150/79
[2018-02-14 04:00] VITALS: BP 145/70
[2018-02-14 08:45] VITALS: BP 121/66
[2018-02-14 12:35] VITALS: BP 114/65
[2018-02-14 15:42] VITALS: BP 124/72
[2018-02-14 16:27] LABS: CHLORIDE 102 MEQ/L (99-109); CREATININE 0.7 MG/DL (0.6-1.3); GFR ESTIMATE (CALCULATED) > 59 mL/min/ (58.99-99999); GLUCOSE 163 mg/dL (70-99); POTASSIUM 4.3 MEQ/L (3.7-5.4); SODIUM 137 MEQ/L (136-147); UREA NITROGEN (BUN) 19 mg/dL (9-23)
[2018-02-14 19:50] VITALS: BP 131/74
[2018-02-15 00:15] VITALS: BP 119/62
[2018-02-15 04:00] VITALS: BP 120/67
[2018-02-15 06:01] LABS: CHLORIDE 103 MEQ/L (99-109); CREATININE 0.6 MG/DL (0.6-1.3); GFR ESTIMATE (CALCULATED) > 59 mL/min/ (58.99-99999); GLUCOSE 189 mg/dL (70-99); POTASSIUM 4.3 MEQ/L (3.7-5.4); SODIUM 136 MEQ/L (136-147); UREA NITROGEN (BUN) 20 mg/dL (9-23)
[2018-02-15 08:13] VITALS: BP 136/87
[2018-02-15 12:04] VITALS: BP 127/71
[2018-02-15 16:57] VITALS: BP 127/78
[2018-02-15 19:16] VITALS: BP 101/47
[2018-02-16 00:25] VITALS: BP 124/74
[2018-02-16 04:00] VITALS: BP 126/72
[2018-02-16 13:14] VITALS: BP 122/91
[2018-02-16 20:00] VITALS: BP 121/66
[2018-02-16 23:42] VITALS: BP 124/71
[2018-02-17 03:09] VITALS: BP 134/83
[2018-02-17 05:34] LABS: HEMATOCRIT 39.1 % (38.0-50.0); HEMOGLOBIN 13.3 G/DL (12.5-16.6); MCH 29.4 PG (29.0-34.0); MCV 86.3 FL (86-99); PLATELET COUNT 247 K/uL (156-360); RBC DIS.WIDTH-CV 13.6 % (11.8-14.6); RBC DIS.WIDTH-SD 42.7 % (39-53); RED BLOOD COUNT 4.53 M/uL (4.00-5.50); WHITE BLOOD COUNT 7.4 K/uL (4.1-10.2)
[2018-02-17 06:01] LABS: CHLORIDE 100 MEQ/L (99-109); CREATININE 0.7 MG/DL (0.6-1.3); GFR ESTIMATE (CALCULATED) > 59 mL/min/ (58.99-99999); GLUCOSE 199 mg/dL (70-99); MAGNESIUM 1.9 mg/dl (1.3-2.7); POTASSIUM 4.7 MEQ/L (3.7-5.4); SODIUM 135 MEQ/L (136-147); UREA NITROGEN (BUN) 22 mg/dL (9-23)
[2018-02-17 07:35] VITALS: BP 126/79
[2018-02-17 16:13] VITALS: BP 91/59
[2018-02-17 19:20] VITALS: BP 107/58
[2018-02-17 23:24] VITALS: BP 121/76
[2018-02-18 04:08] VITALS: BP 122/71
[2018-02-18 07:23] VITALS: BP 105/63
[2018-02-18 11:52] VITALS: BP 102/67
[2018-02-18 16:18] VITALS: BP 102/68
[2018-02-18 21:08] VITALS: BP 112/67
[2018-02-19] VITALS (7 sets, daily range): BP systolic 105–125; BP diastolic 59–72
[2018-02-19 05:42] LABS: INTER. NORMALIZED RATIO 1.1
[2018-02-19 05:44] LABS: HEMATOCRIT 42.1 % (38.0-50.0); MCHC 33.3 G/DL (30.0-36.0); MCV 87.3 FL (86-99); PLATELET COUNT 290 K/uL (156-360); RBC DIS.WIDTH-CV 13.9 % (11.8-14.6); RBC DIS.WIDTH-SD 44.1 % (39-53); RED BLOOD COUNT 4.82 M/uL (4.00-5.50); WHITE BLOOD COUNT 7.8 K/uL (4.1-10.2)
[2018-02-19 06:04] LABS: CHLORIDE 100 MEQ/L (99-109); CREATININE 0.8 MG/DL (0.6-1.3); GFR ESTIMATE (CALCULATED) > 59 mL/min/ (58.99-99999); GLUCOSE 151 mg/dL (70-99); MAGNESIUM 2.1 mg/dl (1.3-2.7); POTASSIUM 5.2 MEQ/L (3.7-5.4); SODIUM 136 MEQ/L (136-147); UREA NITROGEN (BUN) 27 mg/dL (9-23)
[2018-02-20 03:00] VITALS: BP 105/55
[2018-02-20 05:56] LABS: CHLORIDE 99 MEQ/L (99-109); CREATININE 0.9 MG/DL (0.6-1.3); GFR ESTIMATE (CALCULATED) > 59 mL/min/ (58.99-99999); GLUCOSE 200 mg/dL (70-99); SODIUM 135 MEQ/L (136-147); UREA NITROGEN (BUN) 33 mg/dL (9-23)
[2018-02-20 08:30] VITALS: BP 108/75
[2018-02-20 11:49] VITALS: BP 86/50
[2018-02-20 16:40] VITALS: BP 96/60
[2018-02-20 19:00] VITALS: BP 107/71
[2018-02-20 23:30] VITALS: BP 96/63
[2018-02-21 04:00] VITALS: BP 118/76
[2018-02-21 08:40] VITALS: BP 100/69
[2018-02-21 10:25] LABS: HEMATOCRIT 41.4 % (38.0-50.0); HEMOGLOBIN 13.6 G/DL (12.5-16.6); MCH 29.1 PG (29.0-34.0); MCHC 32.9 G/DL (30.0-36.0); MCV 88.7 FL (86-99); PLATELET COUNT 278 K/uL (156-360); RED BLOOD COUNT 4.67 M/uL (4.00-5.50); WHITE BLOOD COUNT 7.5 K/uL (4.1-10.2)
[2018-02-21 10:47] LABS: CHLORIDE 102 MEQ/L (99-109); CREATININE 0.8 MG/DL (0.6-1.3); GFR ESTIMATE (CALCULATED) > 59 mL/min/ (58.99-99999); GLUCOSE 201 mg/dL (70-99); POTASSIUM 4.5 MEQ/L (3.7-5.4); SODIUM 136 MEQ/L (136-147); UREA NITROGEN (BUN) 34 mg/dL (9-23)
[2018-02-21 11:37] VITALS: BP 119/79
[2018-02-21 15:33] VITALS: BP 116/74
[2018-02-21 19:35] VITALS: BP 141/88
[2018-02-22] VITALS: BP 103/76
[2018-02-22 04:46] VITALS: BP 116/76
[2018-02-22 06:03] LABS: HEMATOCRIT 40.5 % (38.0-50.0); HEMOGLOBIN 13.5 G/DL (12.5-16.6); MCH 29.1 PG (29.0-34.0); MCHC 33.3 G/DL (30.0-36.0); MCV 87.3 FL (86-99); PLATELET COUNT 286 K/uL (156-360); RBC DIS.WIDTH-CV 13.8 % (11.8-14.6); RBC DIS.WIDTH-SD 43.6 % (39-53); RED BLOOD COUNT 4.64 M/uL (4.00-5.50); WHITE BLOOD COUNT 7.2 K/uL (4.1-10.2)
[2018-02-22 06:22] LABS: CHLORIDE 99 MEQ/L (99-109); CREATININE 0.7 MG/DL (0.6-1.3); GFR ESTIMATE (CALCULATED) > 59 mL/min/ (58.99-99999); GLUCOSE 193 mg/dL (70-99); MAGNESIUM 1.9 mg/dl (1.3-2.7); POTASSIUM 4.7 MEQ/L (3.7-5.4); SODIUM 135 MEQ/L (136-147); UREA NITROGEN (BUN) 26 mg/dL (9-23)
[2018-02-22 07:47] VITALS: BP 136/62
[2018-02-22] MEDS ORDERED: DUONEB 2.5-0.5 M3 ML AEROSOL ×2 (11:43)
[2018-02-22] MEDS ORDERED: DOCU LIQUI50 MG/5 ML PO (11:43)
[2018-02-22] MEDS ORDERED: METOPROLOL5 MG/5 M2 IV (11:43)
[2018-02-22] MEDS ORDERED: Ocean Nasal 0.65% BOTH NARES (11:43)
[2018-02-22] MEDS ORDERED: POLYETHYLENE GL17 GM PO (11:43)
[2018-02-22] MEDS ORDERED: MUCINEX600 MG PO (11:43)
[2018-02-22] MEDS ORDERED: Zeasorb Antifungal T TP (11:43)
[2018-02-22] MEDS ORDERED: HEPARIN SO5000 UNIT4 SC (11:43)
[2018-02-22] MEDS ORDERED: SORE THROAT SP177 M1 MM (11:43)
[2018-02-22] MEDS ORDERED: GLIPIZIDE5 MG PO (11:43)
[2018-02-22] MEDS ORDERED: BISACODYL5 MG PO (11:43)
[2018-02-22] MEDS ORDERED: FAMOTIDINE20 MG PO (11:43)
[2018-02-22] MEDS ORDERED: ACETYLCYST100 MG/1 M IH (11:43)
[2018-02-22] MEDS ORDERED: ALPRAZOLAM0.5 MG PO (11:43)
[2018-02-22] MEDS ORDERED: NOVOLOG 10100 UNITS/ SC (11:43)
== END 2018-02-22 13:32 | DRG 853 ==
LOC: 3EAST 17:35 → ENRESERV 18:11 → 3EAST 19:26 → 4WEST 19:26 → 3EAST 02-03 13:01 → ENRESERV 02-03 13:02 → 4EAST 02-03 14:26 → ENRESERV 02-03 20:35 → 4WEST 02-03 20:43 → ENRESERV 02-07 12:57 → 5SOUTH 02-07 14:31 → ENRESERV 02-10 13:55 → 4WEST 02-10 14:09 → ENRESERV 02-13 14:07 → 4EAST 02-13 16:06 → ENPENDDIS 02-22 13:00 → 4EAST 02-22 13:32
PROVIDERS: Hospitalist; Internal Medicine; Internal Medicine Pulmonary Disease; Physician Assistant Medical; Specialist; Surgery
PROC: 0BH17EZ Insertion of Endotracheal Airway into Trachea, Via Natural or Artificial Opening (ICD-10-PCS; principal; 2018-02-02)
PROC: 05H533Z Insertion of Infusion Device into Right Subclavian Vein, Percutaneous Approach (ICD-10-PCS; 2018-02-03)
PROC: 5A1945Z Respiratory Ventilation, 24-96 Consecutive Hours (ICD-10-PCS; 2018-02-10)
PROC: 0BH17EZ Insertion of Endotracheal Airway into Trachea, Via Natural or Artificial Opening (ICD-10-PCS; 2018-02-10)
PROC: 02HV33Z Insertion of Infusion Device into Superior Vena Cava, Percutaneous Approach (ICD-10-PCS; 2018-02-10)
PROC: 0DH63UZ Insertion of Feeding Device into Stomach, Percutaneous Approach (ICD-10-PCS; 2018-02-10)
PROC: 009U3ZX Drainage of Spinal Canal, Percutaneous Approach, Diagnostic (ICD-10-PCS; 2018-02-10)
PROC: 0B9M8ZX Drainage of Bilateral Lungs, Via Natural or Artificial Opening Endoscopic, Diagnostic (ICD-10-PCS; 2018-02-10)
PROC: 3E0G76Z Introduction of Nutritional Substance into Upper GI, Via Natural or Artificial Opening (ICD-10-PCS; 2018-02-10)
DX: A41.9 Sepsis, unspecified organism (principal); G61.0 Guillain-Barre syndrome; R65.20 Severe sepsis without septic shock; J96.01 Acute respiratory failure with hypoxia; J96.02 Acute respiratory failure with hypercapnia; R06.82 Tachypnea, not elsewhere classified; E87.2 Acidosis; Z99.11 Dependence on respirator [ventilator] status; E78.5 Hyperlipidemia, unspecified; K21.0 Gastro-esophageal reflux disease with esophagitis; E87.1 Hypo-osmolality and hyponatremia; I95.9 Hypotension, unspecified; E87.5 Hyperkalemia; J98.11 Atelectasis; R33.9 Retention of urine, unspecified; I25.10 Atherosclerotic heart disease of native coronary artery without angina pectoris; J69.0 Pneumonitis due to inhalation of food and vomit; N28.1 Cyst of kidney, acquired; E86.0 Dehydration; T88.4XXA Failed or difficult intubation, initial encounter; R47.02 Dysphasia; K29.70 Gastritis, unspecified, without bleeding; E11.65 Type 2 diabetes mellitus with hyperglycemia; I10 Essential (primary) hypertension; R13.10 Dysphagia, unspecified; B37.0 Candidal stomatitis; Z79.4 Long term (current) use of insulin; K59.00 Constipation, unspecified; Z79.84 Long term (current) use of oral hypoglycemic drugs; Z87.440 Personal history of urinary (tract) infections; Z83.3 Family history of diabetes mellitus; E83.39 Other disorders of phosphorus metabolism; E83.42 Hypomagnesemia; D69.6 Thrombocytopenia, unspecified; R41.0 Disorientation, unspecified; J90 Pleural effusion, not elsewhere classified; E87.8 Other disorders of electrolyte and fluid balance, not elsewhere classified; B35.9 Dermatophytosis, unspecified; G47.10 Hypersomnia, unspecified
CPT/HCPCS: 36600; 62270; 70450; 71045; 71250; 71275; 72131; 72148; 74176; 74230; 77003; 80048; 80048 91; 80053; 81003; 82040 90; 82042 90; 82330; 82533 91; 82550; 82550 91; 82607; 82784; 82784 90; 82945; 82948; 83036; 83605; 83615 91; 83735; 83873 90; 83916 90; 84100; 84157; 84443; 84478; 85025; 85025 91; 85027; 85610; 85730; 86022 90; 86617 90; 86618 90; 87040; 87070; 87086; 87205; 87493; 87529 90; 87641; 89051; 92526 GN; 92610 GN; 92611 GN; 94002; 94003; 94640; 94660; 94667; 94668; 94669; 94760; 94799; 95819; 97530 GO; 97530 GP; A6214; C1751; J0295; J0360; J0690; J0692; J0696; J1100; J1566; J1644; J1652; J1815; J2250; J2543; J2704; J2710; J2930; J3010; J3370; J3475; J7030; J7040; J7050; J7643; S0028; S0030